=== PATIENT | female | born 1950 | race Caucasian/White ===

== ENCOUNTER 2016-08-27 15:21 | Emergency (ER) | payer MEDICARE, MEDICAID ==
[~2016-08-27] VITALS: Ht 162.6 cm; Wt 79.4 kg
[~2016-08-27 15:21] MED LIST: ACET-868 PO; ALBU2.5V38 NEB; ASPI-495 PO; ATOR20TA PO; CLON0.1T PO; ENOX40DI SQ; FURO-144 PO; LACT1CAP61 PO; METO50TA7 PO; ONDA4TAB11 PO; OXYB5TAB PO; PANT40TA2 PO; PREG50CA PO
[2016-08-27] MEDS ORDERED: IV SET PRIMARY 1 EA INFUS.SET MC ONE ×2 (15:45→16:39)
[2016-08-27] MEDS ORDERED: IV NS 0.9% 1,000 ML ONE ×2 (15:45→16:39)
[2016-08-27 15:54] LABS: BASOPHILS % (AUTO) 0.6 % (0.0-2.0); DIFF TOTAL % 100 %; EOSINOPHILS # (AUTO) 0.2 /CMM (0.0-0.7); EOSINOPHILS % (AUTO) 2.1 % (0.0-6.0); HEMATOCRIT 41 % (33-45); HEMOGLOBIN 12.5 g/dL (11.5-14.8); LYMPHOCYTES # (AUTO) 1.2 /CMM (0.8-4.8); LYMPHOCYTES % (AUTO) 15.6 % (20.0-44.0); MEAN CORPUSCULAR HEMOGLOBIN 28 PG (26.0-33.0); MEAN CORPUSCULAR HGB CONC 30 g/dl (31.0-36.0); MEAN CORPUSCULAR VOLUME 92 fL (82-100); MONOCYTES # (AUTO) 0.4 /CMM (0.1-1.30); MONOCYTES % (AUTO) 5.2 % (2.0-12.0); NEUTROPHILS # (AUTO) 5.7 /CMM (1.8-8.9); NEUTROPHILS % (AUTO) 76.5 % (43.0-81.0); PLATELET COUNT (AUTO) 188 /CMM (150-450); RED BLOOD CELL COUNT(AUTO) 4.48 MIL/uL (4.0-5.2); WHITE BLOOD COUNT (AUTO) 7.5 K/uL (4.3-11.0)
[2016-08-27] MEDS ORDERED: IV NS 0.9% 1,000 ML BAG IV ONE (16:00)
[2016-08-27 16:14] LABS: ALBUMIN 3.5 g/dL (3.4-5.0); BILIRUBIN,DIRECT 0.1 mg/dL (0.0-0.2); BILIRUBIN,TOTAL 0.5 mg/dL (0.2-1.0); CALCIUM, SERUM 9.4 mg/dL (8.5-10.1); CREATININE 1.9 mg/dL (0.6-1.3); INDIRECT BILIRUBIN 0.4 mg/dL (0.0-1.1); POTASSIUM 3.8 mmol/L (3.5-5.1); TOTAL PROTEIN, SERUM 8.2 g/dL (6.4-8.2)
[2016-08-27] MEDS ORDERED: INSULIN REGULAR, HUMAN 100 UNIT/ML 10 ML VIAL SQ ONE (16:30)
[2016-08-27] MEDS ORDERED: IV NS 0.9% 1,000 ML IV ONE (16:30)
[2016-08-27] MEDS ORDERED: INSULIN REGULAR, HUMAN 100 UNIT/ML 10 ML VIAL ONE (16:40)
[2016-08-27 18:27] LABS: KETONES,URINE Negative (NEGATIVE); LEUKOCYTE ESTERASE ,URINE Moderate (NEGATIVE)
[2016-08-27 18:44] LABS: ADD UA MICROSCOPIC YES
[2016-08-27 18:56] LABS: ADD URINE CULTURE YES; WBC,URINE 51-80 /HPF (0-3)
[2016-08-27] MEDS ORDERED: CEFTRIAXONE 1GM BAG (ER ONLY) 1 GM/50 ML PIGGYBACK IV ONE (19:00)
[2016-08-27] MEDS ORDERED: CEFTRIAXONE 1GM BAG (ER ONLY) 50 ML IV ONE (19:08)
[2016-08-27] MEDS ORDERED: IV SET PRIMARY PUMP SET 1 EA INFUS.SET MC ONE (19:09)
[2016-08-27 22:32] VITALS: BP 134/50
== END 2016-08-27 22:35 | disposition home or self-care (01) ==
LOC: ER 15:25
DX: E11.65 Type 2 diabetes mellitus with hyperglycemia (principal); N39.0 Urinary tract infection, site not specified; I10 Essential (primary) hypertension; I50.9 Heart failure, unspecified; K21.9 Gastro-esophageal reflux disease without esophagitis; N18.9 Chronic kidney disease, unspecified; F41.9 Anxiety disorder, unspecified; I73.9 Peripheral vascular disease, unspecified; M86.9 Osteomyelitis, unspecified; Z89.511 Acquired absence of right leg below knee; Z90.89 Acquired absence of other organs; Z88.6 Allergy status to analgesic agent; Z88.8 Allergy status to other drugs, medicaments and biological substances; Z79.82 Long term (current) use of aspirin
CPT/HCPCS: 36415; 80048; 80076; 81001; 82010; 82962; 83690; 85025; 87086; 96361; 96365; 96372; 99284; A4606; J0696; J1815; J7030 ×2; 81000-TC; 87186-TC; Z7610

== ENCOUNTER 2016-09-10 07:30 | Emergency (ER) | payer MEDICARE, MEDICAID ==
[~2016-09-10] VITALS: Ht 152.4 cm; Wt 72.1 kg
[2016-09-10 08:08] LABS: BASOPHILS % (AUTO) 0.3 % (0.0-2.0); DIFF TOTAL % 100 %; EOSINOPHILS # (AUTO) 0.2 /CMM (0.0-0.7); EOSINOPHILS % (AUTO) 3.5 % (0.0-6.0); HEMATOCRIT 36 % (33-45); HEMOGLOBIN 11.7 g/dL (11.5-14.8); LYMPHOCYTES % (AUTO) 14.2 % (20.0-44.0); MEAN CORPUSCULAR HEMOGLOBIN 30 PG (26.0-33.0); MEAN CORPUSCULAR HGB CONC 32 g/dl (31.0-36.0); MEAN CORPUSCULAR VOLUME 92 fL (82-100); MONOCYTES # (AUTO) 0.5 /CMM (0.1-1.30); MONOCYTES % (AUTO) 6.4 % (2.0-12.0); NEUTROPHILS # (AUTO) 5.4 /CMM (1.8-8.9); NEUTROPHILS % (AUTO) 75.6 % (43.0-81.0); PLATELET COUNT (AUTO) 216 /CMM (150-450); RED BLOOD CELL COUNT(AUTO) 3.94 MIL/uL (4.0-5.2); WHITE BLOOD COUNT (AUTO) 7.1 K/uL (4.3-11.0)
[2016-09-10 08:16] LABS: CREATININE 1.9 mg/dL (0.6-1.3); POTASSIUM 4.2 mmol/L (3.5-5.1)
[2016-09-10 08:21] LABS: ALBUMIN 3.2 g/dL (3.4-5.0); BILIRUBIN,DIRECT 0.2 mg/dL (0.0-0.2); BILIRUBIN,TOTAL 0.7 mg/dL (0.2-1.0); INDIRECT BILIRUBIN 0.5 mg/dL (0.0-1.1); TOTAL PROTEIN, SERUM 7.6 g/dL (6.4-8.2)
[2016-09-10 08:24] LABS: TROPONIN I 0.026 ng/mL (0.00-0.056)
[2016-09-10 08:33] LABS: INR 1.02 (0.87-1.13)
[2016-09-10 11:19] VITALS: BP 132/88
== END 2016-09-10 11:19 | disposition home or self-care (01) ==
LOC: ER 07:31
DX: S09.90XA Unspecified injury of head, initial encounter (principal); S13.9XXA Sprain of joints and ligaments of unspecified parts of neck, initial encounter; I11.0 Hypertensive heart disease with heart failure; I50.9 Heart failure, unspecified; K21.9 Gastro-esophageal reflux disease without esophagitis; I12.9 Hypertensive chronic kidney disease with stage 1 through stage 4 chronic kidney disease, or unspecified chronic kidney disease; N18.9 Chronic kidney disease, unspecified; D64.9 Anemia, unspecified; I73.9 Peripheral vascular disease, unspecified; E11.9 Type 2 diabetes mellitus without complications; Z89.511 Acquired absence of right leg below knee; Z79.82 Long term (current) use of aspirin; Z88.8 Allergy status to other drugs, medicaments and biological substances; Z90.89 Acquired absence of other organs; Z88.5 Allergy status to narcotic agent; W07.XXXA Fall from chair, initial encounter; Y93.89 Activity, other specified; Y92.89 Other specified places as the place of occurrence of the external cause; Y99.9 Unspecified external cause status
CPT/HCPCS: 36415; 70450; 71010; 72125; 80048; 80076; 84484; 85025; 85730; 93005; 99285; A4606; Z7610

== ENCOUNTER 2016-10-14 19:57 | Inpatient (IN) | payer MEDICARE, MEDICAID ==
[~2016-10-14] VITALS: Ht 152.4 cm; Wt 77.6 kg
--- NOTE | 2016-10-14 20:00 | NUR ---
to bed 3 bib paramedics c/o worsening cough and congestion x2 days, pt reports that she has been talking cough syrup for a couple of weeks by not getting better. pt aaox4, noted o2sat 78% on ra. place pt on cardiac monitoring, continuous pox, o2@2l/nc. skin warm nondiaphoretic. pending er md thomas.
[2016-10-14 20:24] LABS: LYMPHOCYTES # (AUTO) 1.1 /CMM (0.8-4.8); MEAN CORPUSCULAR HEMOGLOBIN 30 PG (26.0-33.0)
[2016-10-14 20:29] LABS: BASOPHILS # (AUTO) 0.1 /CMM (0.0-0.2); BASOPHILS % (AUTO) 0.5 % (0.0-2.0); EOSINOPHILS # (AUTO) 0.2 /CMM (0.0-0.7); EOSINOPHILS % (AUTO) 1.1 % (0.0-6.0); HEMATOCRIT 41 % (33-45); HEMOGLOBIN 13.3 g/dL (11.5-14.8); LYMPHOCYTES % (AUTO) 7.9 % (20.0-44.0); MEAN CORPUSCULAR HGB CONC 32 g/dl (31.0-36.0); MEAN CORPUSCULAR VOLUME 93 fL (82-100); MONOCYTES # (AUTO) 0.5 /CMM (0.1-1.30); MONOCYTES % (AUTO) 3.9 % (2.0-12.0); NEUTROPHILS % (AUTO) 86.6 % (43.0-81.0); PLATELET COUNT (AUTO) 247 /CMM (150-450); RDW COEFFICIENT OF VARIATION 17.3 (11.5-15.0); RED BLOOD CELL COUNT(AUTO) 4.41 MIL/uL (4.0-5.2); WHITE BLOOD COUNT (AUTO) 13.9 K/uL (4.3-11.0)
[2016-10-14 20:41] LABS: INR 0.99 (0.87-1.13); PROTHROMBIN TIME 10.3 SECS (9.5-12.7)
[2016-10-14 20:43] LABS: ALBUMIN 3.6 g/dL (3.4-5.0); BILIRUBIN,DIRECT 0.1 mg/dL (0.0-0.2); BILIRUBIN,TOTAL 0.4 mg/dL (0.2-1.0); CALCIUM, SERUM 10.1 mg/dL (8.5-10.1); CREATININE 1.8 mg/dL (0.6-1.3); POTASSIUM 4.1 mmol/L (3.5-5.1); TOTAL PROTEIN, SERUM 8.7 g/dL (6.4-8.2)
--- NOTE | 2016-10-14 20:47 | NUR ---
rt at bedside for hhn tx.
[2016-10-14] MEDS ORDERED: IPRATROPIUM NEB FS 0.5 MG/2.5 ML AMPUL.NEB ONE (20:48)
[2016-10-14] MEDS ORDERED: ALBUTEROL FS 2.5 MG/3 ML VIAL.NEB ONE (20:48)
[2016-10-14 20:58] LABS: TROPONIN I 0.035 ng/mL (0.00-0.056)
[2016-10-14] MEDS ORDERED: IPRATROPIUM NEB FS 0.5 MG/2.5 ML AMPUL.NEB NEB ONE (21:00)
[2016-10-14] MEDS ORDERED: ALBUTEROL FS 2.5 MG/3 ML VIAL.NEB NEB ONE (21:00)
--- NOTE | 2016-10-14 21:11 | NUR ---
CALLED [facility] AND CALL IS REFERRED TO EPIC
[2016-10-14 21:12] LABS: LACTIC ACID 1.9 mmol/L (0.4-2.0)
--- NOTE | 2016-10-14 21:12 | NUR ---
CALLED NURSING LOGGING RAFTER LABORER FOR TELE BED
--- NOTE | 2016-10-14 21:22 | NUR ---
PAGED EPIC COGNOS REPORT DEVELOPER MATT
--- NOTE | 2016-10-14 21:27 | NUR ---
PT ASSIGNED ROOM 104
[2016-10-14] MEDS ORDERED: IV NS 0.9% 1,000 ML IV ONE (21:30)
[2016-10-14] MEDS ORDERED: INSULIN REGULAR, HUMAN 100 UNIT/ML 10 ML VIAL SQ ONE (21:30)
--- NOTE | 2016-10-14 21:30 | NUR ---
DR DIAZ ON THE PHONE WITH DR GUTIERREZ
[2016-10-14] MEDS ORDERED: PIPERACILLIN /TAZOBACTAM 3.375 G VIAL IV ONE (21:44)
[2016-10-14] MEDS ORDERED: IV D5W 50 ML IV ONE (21:45)
[2016-10-14] MEDS ORDERED: IV SET PRIMARY 1 EA INFUS.SET MC ONE (21:45)
[2016-10-14] MEDS ORDERED: IV NS 0.9% 1,000 ML ONE ×2 (21:45→23:39)
[2016-10-14] MEDS ORDERED: INSULIN REGULAR, HUMAN 100 UNIT/ML 10 ML VIAL ONE ×2 (21:45→23:56)
[2016-10-14] MEDS ORDERED: ZOLPIDEM TARTRATE 5 MG TABLET PO PRN (22:00)
[2016-10-14] MEDS ORDERED: PIPERACILLIN /TAZOBACTAM 3.375 G in IV D5W 50 ML IV ONE (22:00)
--- NOTE | 2016-10-14 22:04 | NUR ---
WITNESSED SQ ADMINISTRATION OF REGULAR INSULIN 10 UNITS BY PRIMARY NURSE.
[2016-10-14 22:06] LABS: APPEARANCE,URINE SL CLOUDY (CLEAR); BILIRUBIN,URINE NEGATIVE (NEGATIVE); BLOOD, URINE 1+ Ery/uL (NEGATIVE); COLOR,URINE YELLOW (YELLOW); KETONES,URINE NEGATIVE (NEGATIVE); LEUKOCYTE ESTERASE ,URINE TRACE (NEGATIVE); NITRITE, URINE NEGATIVE (NEGATIVE); PH,URINE 6.5 (5.0-8.0); PROTEIN,URINE 2+ mg/dl (NEGATIVE); UGLUCOSE 3+ mg/dL (NEGATIVE); UROBILINOGEN,URINE 0.2 EU/dL (0.2)
[2016-10-14 22:17] LABS: ADD URINE CULTURE NO; BACTERIA,URINE 1+ /HPF (None Seen)
--- NOTE | 2016-10-14 22:37 | NUR ---
REPORT CALLED TO RETAIL ATTENDANT. PENDING HOSPITAL ADMISSION.
--- NOTE | 2016-10-14 22:50 | NUR ---
WAREHOUSE PACKAGING SUPERVISOR INITIAL NOTE RECEIVED PT VIA GURNEY FROM ER. A/O X3 AND ABLE TO MAKE NEEDS KNOWN. NO ACUTE DISTRESS NOTED. ON . SKIN ASSESSMENT DONE. HEART AND LUNG SOUNDS AUSCULTATED. IV SITE L FA #18G FLUSHING WELL , PATENT AND INTACT. VITAL SIGNS ALSO DONE. ALL SAFETY MEASURES IN PLACE. CALL LIGHT WITHIN EASY REACH AT ALL TIMES. WILL CONTINUE TO MONITOR.
[2016-10-14] MEDS ORDERED: IV NS 0.9% 1,000 ML IV PRN (23:28)
[2016-10-14] MEDS ORDERED: ENOXAPARIN SODIUM 40 MG/0.4 ML DISP.SYRIN SQ SCH (23:30)
[2016-10-14] MEDS ORDERED: MAG HYDROX/AL HYDROX/SIMETH 30 ML UDC PO PRN (23:30)
[2016-10-14] MEDS ORDERED: MAGNESIUM HYDROXIDE 30 ML UDC PO PRN (23:30)
[2016-10-14] MEDS ORDERED: HYDROCODONE/APAP 5/325MG 1 EACH TABLET PO PRN (23:30)
[2016-10-14] MEDS ORDERED: HYDROMORPHONE INJ 2 MG/ML DISP.SYRIN IV PRN (23:30)
[2016-10-14] MEDS ORDERED: Z GUARD REMEDY 2 OZ OINT TP PRN (23:30)
[2016-10-14] MEDS ORDERED: DEXTROSE 50%-WATER 50 ML DISP.SYRIN IV PRN (23:30)
[2016-10-14] MEDS ORDERED: IV SET PRIMARY PUMP SET 1 EA INFUS.SET MC ONE (23:38)
[2016-10-14 23:55] LABS: ABG BASE EXCESS 6.1 mmol/L; ABG PCO2 59.5 mmHg (35.0-45.0); ABG PH 7.364 (7.350-7.450); ABG PO2 49.6 mmHg (75.0-100.0); ABG TOTAL HEMOGLOBIN 13.1 G/dL (12.0-16.0); AaDO2 108.9 mmHg; COHb 1.3 % (0.5-1.5); MetHb 0.9 % (0.0-1.5); O2Hb 79.2 % (94.0-97.0); SITE, ABG Right Radial; VENT MODE, BG Nasal Cannula
[2016-10-15] VITALS: BP 136/72
[2016-10-15] MEDS ORDERED: ALBUTEROL FS 2.5 MG/3 ML VIAL.NEB NEB SCH
[2016-10-15] MEDS ORDERED: BENZONATATE 100 MG CAPSULE PO PRN
[2016-10-15] MEDS ORDERED: GUAIFENESIN/CODEINE 10 ML UDC PO PRN
[2016-10-15] MEDS ORDERED: CLONIDINE HCL 0.1 MG TABLET PO PRN
--- NOTE | 2016-10-15 | NUR ---
RN NOTES: PT BS CHECK 505 MG/DL. ALSO PATIENT O2 SATS AT 85-89% ON O2 OF 2LPM. PT SAYS SHE HAS HISTORY OF COPD. DR GUTIERREZ MADE AWARE, ADMISSION ORDERS IN. PER MD WITH ORDER FOR NPH INSULIN 15 UNITS SQ NOW ONE TIME DOSE IN ADDITION TO SLIDING SCALE. NOTED ORDER IN EMR BUT DOES NOT SHOW UP IN EMAR. DUE TO THIS UNABLE TO SCAN NPH. ORDERS NOTED AND CARRIED OUT. CO SIGNED BY ANGELICA PERALTA PT'S PRIMARY NURSE. PLEASE SEE ORDER IN CHART WELL. ALSO WITH ORDER FOR STAT ABG ON LOW FLOW O2. NOTED AND CARRIED OUT. NON ADMINISTERED ZOSYN PT WAS GIVEN WITH ZOSYN 2HRS AGO AT ER. PT WITH COMPLAINTS OF NAUSEA BUT NO EMESIS NOTED. PRN MEDS GIVEN. 0039 RELAYED ABG RESULT TO MD,WITH ORDERS OF BREATHING TX AND MONITOR PT FOR DISTRESS. CONTINUOUSLY MONITORED PT. ALL ORDERS NOTED AND CARRIED OUT. PRIMARY RNKATHRYN AWARE AND INVOLVED WITH CARE.
--- NOTE | 2016-10-15 00:05 | NUR ---
ABG DONE. NOTIFIED RN WITH THE RESULT.
[2016-10-15] MEDS: INSULIN REGULAR, HUMAN 100 UNIT/ML 3 ML VIAL SQ PRN ×6 (00:10→21:27)
[2016-10-15] MEDS ORDERED: INSULIN NPH, HUMAN ISOPHANE 100 UNIT/ML CARTRIDGE SQ PRN (00:30)
[2016-10-15] MEDS ORDERED: INSULIN NPH, HUMAN ISOPHANE 100 UNIT/ML VIAL SQ SCH (00:30)
[2016-10-15] MEDS ORDERED: INSULIN NPH, HUMAN ISOPHANE 100 UNIT/ML CARTRIDGE SQ ONE ×5 (00:30→05:30)
[2016-10-15] MEDS: ALBUTEROL FS 2.5 MG/3 ML VIAL.NEB NEB SCH ×7 (00:36→23:03)
[2016-10-15] MEDS: ONDANSETRON HCL/PF 4 MG/2 ML VIAL IVP PRN (00:39)
[2016-10-15] MEDS ORDERED: ALBUTEROL FS 2.5 MG/3 ML VIAL.NEB ONE (02:46)
[2016-10-15] MEDS: BLOOD SUGAR DIAGNOSTIC 1 EACH STRIP IN SCH ×6 (03:07→21:17)
[2016-10-15 04:00] VITALS: BP 120/57
[2016-10-15] MEDS ORDERED: PIPERACILLIN /TAZOBACTAM 2.25 G VIAL IV ONE (04:59)
[2016-10-15] MEDS ORDERED: SECONDARY IV SET 1 EA INFUS.SET MC ONE ×2 (04:59→12:28)
[2016-10-15] MEDS ORDERED: IV D5W 50 ML IV ONE (04:59)
--- NOTE | 2016-10-15 05:00 | NUR ---
RN NOTES: RECHECK BLOOD SUGAR, AT 418 MG/DL. INFORMED MD DR GUTIERREZ WITH ORDER FOR ANOTHER 10 UNITS NPH AND COVER REGULAR INSULIN PER PROTOCOL. NOTED AND CARRIED OUT. PRIMARY RN, KATHRYN AWARE AND INVOLVED. TO CONTINUE TO MONITOR PT.
[2016-10-15] MEDS: PIPERACILLIN /TAZOBACTAM 4.5 G in IV D5W 50 ML IV SCH ×3 (05:12)
[2016-10-15 06:44] LABS: HEMATOCRIT 37 % (33-45); HEMOGLOBIN 11.9 g/dL (11.5-14.8); LYMPHOCYTES # (AUTO) 0.8 /CMM (0.8-4.8); LYMPHOCYTES % (AUTO) 5.4 % (20.0-44.0); MEAN CORPUSCULAR HEMOGLOBIN 30 PG (26.0-33.0); MEAN CORPUSCULAR HGB CONC 32 g/dl (31.0-36.0); MEAN CORPUSCULAR VOLUME 94 fL (82-100); MONOCYTES # (AUTO) 0.6 /CMM (0.1-1.30); MONOCYTES % (AUTO) 3.9 % (2.0-12.0); NEUTROPHILS # (AUTO) 14.2 /CMM (1.8-8.9); NEUTROPHILS % (AUTO) 90.7 % (43.0-81.0); PLATELET COUNT (AUTO) 225 /CMM (150-450); RDW COEFFICIENT OF VARIATION 18.4 (11.5-15.0); RED BLOOD CELL COUNT(AUTO) 3.97 MIL/uL (4.0-5.2); WHITE BLOOD COUNT (AUTO) 15.6 K/uL (4.3-11.0)
--- NOTE | 2016-10-15 07:15 | NUR ---
INSURANCE LOSS ASSESSOR INITIAL NOTES RECEIVED REPORT AND PT FROM PM NURSE, PT RESTING IN BED, NO ACUTE CHANGES, NO SOB, PT ASLEEP SITTING UPRIGHT, A&O X4, ON TELE MON SR 83 WITH PVCS, ON 2L NC SAT ABOVE 97%, LT FA 18 G RUNNING NS @ 75 ML/HR, INTACT NO INFILTRATION, ALL NEEDS MET, ALL SAFETY MEASURES INITIATED, SIDE RAILS X2, BED LOW AND LOCKED, CALL LIGHT WITHIN REACH, WILL CONTINUE TO MONITOR.
[2016-10-15 07:34] LABS: CALCIUM, SERUM 9.1 mg/dL (8.5-10.1); CREATININE 1.8 mg/dL (0.6-1.3); MAGNESIUM 1.8 mg/dL (1.8-2.4); POTASSIUM 4.4 mmol/L (3.5-5.1)
[2016-10-15 08:00] VITALS: BP 126/58
[2016-10-15] MEDS: PANTOPRAZOLE 40 MG TABLET.DR PO SCH (08:54)
[2016-10-15] MEDS: OXYBUTYNIN CHLORIDE ER 5 MG TAB PO SCH (08:54)
[2016-10-15] MEDS: ASPIRIN EC 81 MG TABLET.DR PO SCH (08:54)
[2016-10-15] MEDS: PREGABALIN 25 MG CAPSULE PO SCH ×3 (08:54→16:59)
[2016-10-15] MEDS: METOPROLOL SUCCINATE 50 MG TAB.SR.24H PO SCH (08:55)
[2016-10-15] MEDS ORDERED: PIPERACILLIN /TAZOBACTAM 3.375 G in IV D5W 50 ML IV SCH (11:00)
[2016-10-15 12:00] VITALS: BP 107/50
[2016-10-15] MEDS ORDERED: BUMETANIDE INJ 8 MG in IV NS 0.9% 48 ML IV ONE (12:00)
[2016-10-15 12:14] LABS: ABG BASE EXCESS 7.9 mmol/L; ABG OXYGEN SATURATION 90.2 % (92.0-98.5); ABG PCO2 58.6 mmHg (35.0-45.0); ABG PH 7.388 (7.350-7.450); ABG PO2 61.9 mmHg (75.0-100.0); ABG TOTAL HEMOGLOBIN 11.4 G/dL (12.0-16.0); AaDO2 39.5 mmHg; COHb 1.2 % (0.5-1.5); MetHb 1.1 % (0.0-1.5); O2Hb 88.1 % (94.0-97.0); SITE, ABG Left Brachial; VENT MODE, BG 2L NC
[2016-10-15] MEDS: PIPERACILLIN /TAZOBACTAM 3.375 G in IV D5W 50 ML IV SCH ×3 (12:34→22:32)
[2016-10-15 16:00] VITALS: BP 112/45
--- NOTE | 2016-10-15 18:46 | NUR ---
QUALITY PROJECT MANAGER ENDING NOTES PT STABLE, NO ACUTE CHANGES NOTED, ALL DUE MEDS GIVEN, ALL NEEDS MET, BED BATH PROVIDED, DVT PUMPS PLACED, WILL ENDORSE TO PM NURSE
--- NOTE | 2016-10-15 19:30 | NUR ---
EFFICIENCY ENGINEER INITIAL NOTE RECEIVED PT RESTING IN BED AT LOWEST POSITION AND LOCKED. A/O X3 AND ABLE TO MAKE NEEDS KNOWN. ON 2L OF O2 VIA NC AND SATING WELL. NO C/O PAIN OR DISCOMFORT AT THIS TIME. IV LFA PATENT, CLEAN AND FLUSHING WELL. ALL SAFETY MEASURES IN PLACE. CALL LIGHT WITHIN EASY REACH AT ALL TIMES. WILL CONTINUE TO MONITOR.
[2016-10-15 20:00] VITALS: BP 90/52
[2016-10-15] MEDS: ATORVASTATIN 10 MG TABLET PO SCH (21:17)
[2016-10-15] MEDS: ENOXAPARIN SODIUM 30 MG/0.3 ML DISP.SYRIN SQ SCH (21:18)
[2016-10-16] VITALS (7 sets, daily range): BP systolic 89–141; BP diastolic 39–75
[2016-10-16] MEDS: BLOOD SUGAR DIAGNOSTIC 1 EACH STRIP IN SCH ×6 (00:43→21:18)
[2016-10-16] MEDS: ALBUTEROL FS 2.5 MG/3 ML VIAL.NEB NEB SCH ×6 (03:29→23:17)
[2016-10-16] MEDS: ACETAMINOPHEN 325 MG TABLET PO PRN ×2 (03:48→21:20)
[2016-10-16] MEDS: PIPERACILLIN /TAZOBACTAM 3.375 G in IV D5W 50 ML IV SCH ×3 (04:37→18:05)
--- NOTE | 2016-10-16 06:32 | NUR ---
SENIOR COST ESTIMATOR CLOSING NOTE PT REMAINED STABLE DURING SHIFT. BLOOD SUGARS WERE UNDER CONTROL AND MONITORED CLOSELY. SATING WELL. IV SITE INTACT AND PATENT. NO C/O PAIN. ALL DUE MEDS GIVEN ORDERED AND WELL TOLERATED. CALL LIGHT WITHIN REACH AT ALL TIMES. WILL ENDORSE TO NEXT SHIFT FOR BETSEY.
[2016-10-16 06:52] LABS: BASOPHILS % (AUTO) 0.2 % (0.0-2.0); EOSINOPHILS % (AUTO) 0.2 % (0.0-6.0); HEMATOCRIT 33 % (33-45); LYMPHOCYTES # (AUTO) 1.1 /CMM (0.8-4.8); LYMPHOCYTES % (AUTO) 7.6 % (20.0-44.0); MEAN CORPUSCULAR HEMOGLOBIN 31 PG (26.0-33.0); MEAN CORPUSCULAR HGB CONC 33 g/dl (31.0-36.0); MEAN CORPUSCULAR VOLUME 93 fL (82-100); MONOCYTES # (AUTO) 0.8 /CMM (0.1-1.30); MONOCYTES % (AUTO) 5.6 % (2.0-12.0); NEUTROPHILS # (AUTO) 12.7 /CMM (1.8-8.9); NEUTROPHILS % (AUTO) 86.4 % (43.0-81.0); PLATELET COUNT (AUTO) 198 /CMM (150-450); RED BLOOD CELL COUNT(AUTO) 3.59 MIL/uL (4.0-5.2); WHITE BLOOD COUNT (AUTO) 14.7 K/uL (4.3-11.0)
[2016-10-16 07:11] LABS: ALBUMIN 2.9 g/dL (3.4-5.0); BILIRUBIN,TOTAL 0.4 mg/dL (0.2-1.0); CALCIUM, SERUM 8.8 mg/dL (8.5-10.1); MAGNESIUM 1.7 mg/dL (1.8-2.4); PHOSPHORUS 4.2 mg/dL (2.5-4.9); POTASSIUM 3.5 mmol/L (3.5-5.1); TOTAL PROTEIN, SERUM 7.1 g/dL (6.4-8.2)
--- NOTE | 2016-10-16 07:31 | NUR ---
PRODUCTION SOLDERER INITIAL NOTES RECEIVED REPORT AND PT FROM PM NURSE, A&O X3 ARMENIAN SPEAKING, ON 2L NC SAT ABOVE 94%, ON TELE MON SR 96, LT FA 18G IV INTACT AND PATENT NO S.S OF INFILTRATION NOTED, ALL NEEDS MET, ALL SAFETY MEASURES INITIATED, SIDE RAILS X2, BED LOW AND LOCKED, CALL LIGHT WITHIN REACH, WILL CONTINUE TO MONITOR.
[2016-10-16] MEDS: METOPROLOL SUCCINATE 50 MG TAB.SR.24H PO SCH (08:39)
[2016-10-16] MEDS: OXYBUTYNIN CHLORIDE ER 5 MG TAB PO SCH (08:40)
[2016-10-16] MEDS: ASPIRIN EC 81 MG TABLET.DR PO SCH (08:41)
[2016-10-16] MEDS: PANTOPRAZOLE 40 MG TABLET.DR PO SCH (08:41)
[2016-10-16] MEDS: PREGABALIN 25 MG CAPSULE PO SCH ×3 (08:41→18:05)
[2016-10-16] MEDS: INSULIN REGULAR, HUMAN 100 UNIT/ML 3 ML VIAL SQ PRN ×3 (08:46→21:25)
[2016-10-16] MEDS ORDERED: BUMETANIDE INJ 8 MG in IV NS 0.9% 48 ML IV ONE (11:00)
[2016-10-16] MEDS: POTASSIUM CHLORIDE 20 MEQ TAB.PRT.SR PO SCH ×3 (11:28→14:16)
--- NOTE | 2016-10-16 11:53 | NUR ---
BREAKER UP NOTES PT ON MONITOR TRIGEMINY WITH HR 98, STAT EKG ORDERED, DR CAVANAUGH AWARE AND AT BEDSIDE.
[2016-10-16] MEDS ORDERED: Magnesium 1GM/D5W 100ML PREMIX 100 ML IV SCH (12:38)
[2016-10-16] MEDS ORDERED: SECONDARY IV SET 1 EA INFUS.SET MC ONE (12:56)
[2016-10-16] MEDS ORDERED: VANCOMYCIN 1 GM in IV D5W 250 ML IV SCH (15:00)
[2016-10-16] MEDS: ONDANSETRON HCL/PF 4 MG/2 ML VIAL IVP PRN (16:04)
--- NOTE | 2016-10-16 18:13 | NUR ---
MINIBUS DRIVER NOTES PT BG IS 152 MG.DL BUT PT IS NOT EATING ANY DINNER AND ALSO REFUSES INSULIN AT THIS TIME
--- NOTE | 2016-10-16 18:29 | NUR ---
CONSTRUCTION ANALYST ENDING NOTES PT STABLE WITH NO ACUTE DISTRESS, ALL DUE MEDS GIVEN, ALL NEEDS MET, WILL ENDORSE TO PM NURSE.
--- NOTE | 2016-10-16 19:00 | NUR ---
CORRESPONDENCE RENEW CLERK- INITIAL NOTE RECEIVED PT A/O X3, LYING COMFORTABLY IN BED. ON 3L NC, RESPIRATIONS EVEN AND UNLABORED, NO SOB OR DISTRESS PRESENT. PT DENIES ANY PAIN OR DISCOMFORT. TELE MONITOR REVEALS SINUS RHYTHM, HR= 99. LFA 18G PRESENT, CURRENTLY ON BUMEX GTT AT 10 MLS/HR. IV SITE FLUSHED, PATENT, INTACT AND FREE OF REDNESS, SWELLING AND INFLAMMATION. PT INCONTINENT OF URINE & STOOL, DIAPER IS CLEAN AND DRY. SAFETY MEASURES TAKEN: BED LOCKED AND IN LOW POSITION, SIDE RAILS UP X2, BED ALARM ON AND CALL LIGHT WITHIN REACH, WILL CONTINUE TO MONITOR.
--- NOTE | 2016-10-16 20:00 | NUR ---
PT NOTED WITH TEMP OF 100.9 ORAL. RE-CHECKED BY MYSELF AND TEMP IS 101. COOLING MEASURES PLACE. TYLENOL 650 MG PO TO BE ADMINISTERED 2020- INFORMED EPIC ON-CALL, Arturo GUTIERREZ DNP OF PT UPDATE. NEW ORDERS PLACED FOR STAT BLOOD CULTURES X2 AND LACTIC ACID. ALL ORDERS PLACED AND CARRIED OUT. PT UPDATED AND AGREES WITH PLAN OF CARE. WILL CONTINUE TO MONITOR.
[2016-10-16] MEDS: ATORVASTATIN 10 MG TABLET PO SCH (21:20)
[2016-10-16] MEDS: ENOXAPARIN SODIUM 30 MG/0.3 ML DISP.SYRIN SQ SCH (21:25)
--- NOTE | 2016-10-16 22:00 | NUR ---
WOUND CONSULT PLACED FOR PT'S LEFT HEEL WOUND WHICH WAS PRESENT DURING ADMISSION. WILL ENDORSE TO DAY SHIFT NURSE.
[2016-10-17] VITALS (7 sets, daily range): BP systolic 94–130; BP diastolic 38–97
[2016-10-17] MEDS ORDERED: IV NS 0.9% 250 ML IV ONE (00:03)
[2016-10-17] MEDS: PIPERACILLIN /TAZOBACTAM 3.375 G in IV D5W 50 ML IV SCH ×5 (00:09→23:45)
[2016-10-17] MEDS: BLOOD SUGAR DIAGNOSTIC 1 EACH STRIP IN SCH ×6 (00:11→21:59)
[2016-10-17] MEDS: INSULIN REGULAR, HUMAN 100 UNIT/ML 3 ML VIAL SQ PRN ×5 (00:18→22:00)
[2016-10-17] MEDS: ALBUTEROL FS 2.5 MG/3 ML VIAL.NEB NEB SCH ×6 (03:19→23:28)
[2016-10-17] MEDS: PANTOPRAZOLE 40 MG TABLET.DR PO SCH (06:47)
[2016-10-17 06:50] LABS: BASOPHILS % (AUTO) 0.3 % (0.0-2.0); EOSINOPHILS # (AUTO) 0.1 /CMM (0.0-0.7); EOSINOPHILS % (AUTO) 0.8 % (0.0-6.0); HEMATOCRIT 36 % (33-45); HEMOGLOBIN 11.6 g/dL (11.5-14.8); LYMPHOCYTES # (AUTO) 1.2 /CMM (0.8-4.8); LYMPHOCYTES % (AUTO) 9.1 % (20.0-44.0); MEAN CORPUSCULAR HEMOGLOBIN 31 PG (26.0-33.0); MEAN CORPUSCULAR HGB CONC 32 g/dl (31.0-36.0); MEAN CORPUSCULAR VOLUME 94 fL (82-100); MONOCYTES # (AUTO) 0.8 /CMM (0.1-1.30); NEUTROPHILS # (AUTO) 10.8 /CMM (1.8-8.9); NEUTROPHILS % (AUTO) 83.8 % (43.0-81.0); PLATELET COUNT (AUTO) 187 /CMM (150-450); RDW COEFFICIENT OF VARIATION 18.4 (11.5-15.0); RED BLOOD CELL COUNT(AUTO) 3.81 MIL/uL (4.0-5.2); WHITE BLOOD COUNT (AUTO) 12.9 K/uL (4.3-11.0)
--- NOTE | 2016-10-17 07:00 | NUR ---
GEAR SHAPER SET UP OPERATOR- END OF SHIFT NOTE PT ENDORSED TO DAY SHIFT NURSE IN STABLE CONDITION, IN NO ACUTE DISTRESS. NO OVERNIGHT EVENTS.
[2016-10-17 07:18] LABS: ALBUMIN 2.8 g/dL (3.4-5.0); BILIRUBIN,TOTAL 0.7 mg/dL (0.2-1.0); CALCIUM, SERUM 8.8 mg/dL (8.5-10.1); CREATININE 2.4 mg/dL (0.6-1.3); MAGNESIUM 2.2 mg/dL (1.8-2.4); PHOSPHORUS 4.7 mg/dL (2.5-4.9); POTASSIUM 3.6 mmol/L (3.5-5.1); TOTAL PROTEIN, SERUM 7.2 g/dL (6.4-8.2)
--- NOTE | 2016-10-17 08:04 | NUR ---
WOUND CARE CONSULT: PT PRESENTS WITH LEFT HEEL ESCHAR, PRESENT ON ADMISSION. RT BK STUMP NOTED. RECOMMEND DPM CONSULT. RECOMMENDATIONS MADE FOR SKIN PROTECTION. LAYNE SCORE IS 16. PT ON LION COMFORT GEL MATTRESS. SOME SACRAL/BUTTOCK SCARRING NOTED. ALL SKIN PROTECTION RECOMMENDATIONS DISCUSSED WITH NURSING STAFF. MD IN AGREEMENT WITH PLAN OF CARE. Addendum: 10/17/16 at 0806 by VENECIA MARIE WNDNU Amended: Links added.
[2016-10-17] MEDS: ASPIRIN EC 81 MG TABLET.DR PO SCH (08:11)
[2016-10-17] MEDS: METOPROLOL SUCCINATE 50 MG TAB.SR.24H PO SCH (08:12)
[2016-10-17] MEDS: OXYBUTYNIN CHLORIDE ER 5 MG TAB PO SCH (08:12)
[2016-10-17] MEDS: PREGABALIN 25 MG CAPSULE PO SCH ×3 (08:12→17:53)
--- NOTE | 2016-10-17 09:58 | NUR ---
RN INITIAL NOTE PT RECEIVED IN BED, NO S/S OF PAIN OR DISCOMFORT. RESTING COMFORTABLY. PT IS ALERT AND ORIENTED. ABLE TO MAKE NEEDS KNOWN. RESPIRATIONS ARE EVEN AND UNLABORED. SATING AT 95% ON 3L N/C. LFA 18G SL. FLUSHED AND PATENT. C/D/I. SKIN WARM AND DRY TO TOUCH SAFETY MEASURES IN PLACE. BED IN LOCKED LOW POSITION. TWO SIDE RAILS UP. CALL LIGHT WITHIN REACH. WILL CONTINUE TO MONITOR.
[2016-10-17] MEDS ORDERED: BUMETANIDE INJ 16 MG in IV NS 0.9% 16 ML IV ONE (13:30)
[2016-10-17] MEDS: ONDANSETRON HCL/PF 4 MG/2 ML VIAL IVP PRN (17:53)
--- NOTE | 2016-10-17 19:18 | NUR ---
RN CLOSING NOTE PT RESTING IN BED COMFORTABLY, ALL MD ORDERS CARRIED OUT. PT KEPT CLEAN AND DRY. WILL GIVE REPORT TO PM RN FOR BETSEY.
[2016-10-17] MEDS: ENOXAPARIN SODIUM 30 MG/0.3 ML DISP.SYRIN SQ SCH (21:46)
[2016-10-17] MEDS: ATORVASTATIN 10 MG TABLET PO SCH (22:18)
[2016-10-17] MEDS ORDERED: SECONDARY IV SET 1 EA INFUS.SET MC ONE (23:31)
[2016-10-18] MEDS: BLOOD SUGAR DIAGNOSTIC 1 EACH STRIP IN SCH ×3 (01:19→13:00)
[2016-10-18 04:00] VITALS: BP 130/70
[2016-10-18] MEDS: ALBUTEROL FS 2.5 MG/3 ML VIAL.NEB NEB SCH ×4 (04:08→15:48)
[2016-10-18] MEDS: PIPERACILLIN /TAZOBACTAM 3.375 G in IV D5W 50 ML IV SCH ×2 (05:22→10:22)
[2016-10-18] MEDS: INSULIN REGULAR, HUMAN 100 UNIT/ML 3 ML VIAL SQ PRN ×2 (06:19→14:36)
[2016-10-18 07:05] LABS: ALBUMIN 2.7 g/dL (3.4-5.0); BILIRUBIN,TOTAL 0.6 mg/dL (0.2-1.0); CALCIUM, SERUM 8.3 mg/dL (8.5-10.1); CREATININE 2.6 mg/dL (0.6-1.3); MAGNESIUM 2.2 mg/dL (1.8-2.4); PHOSPHORUS 4.4 mg/dL (2.5-4.9); POTASSIUM 3.3 mmol/L (3.5-5.1)
[2016-10-18 08:00] VITALS: BP_SYST 133; BP_SYST 135; BP_DIAS 50
[2016-10-18] MEDS: PANTOPRAZOLE 40 MG TABLET.DR PO SCH (10:30)
[2016-10-18] MEDS: ASPIRIN EC 81 MG TABLET.DR PO SCH (10:31)
[2016-10-18] MEDS: PREGABALIN 25 MG CAPSULE PO SCH ×2 (10:31→14:18)
[2016-10-18] MEDS: OXYBUTYNIN CHLORIDE ER 5 MG TAB PO SCH (10:31)
[2016-10-18] MEDS: METOPROLOL SUCCINATE 50 MG TAB.SR.24H PO SCH (10:32)
[2016-10-18] MEDS ORDERED: NITROGLYCERIN 30 GM TUBE TP SCH (12:00)
[2016-10-18] MEDS ORDERED: BUMETANIDE INJ 16 MG in IV NS 0.9% 16 ML IV ONE (12:00)
[2016-10-18] MEDS ORDERED: POTASSIUM CHLORIDE 20 MEQ TAB.PRT.SR PO ONE (13:30)
[2016-10-18] MEDS: ONDANSETRON HCL/PF 4 MG/2 ML VIAL IVP PRN (14:31)
--- NOTE | 2016-10-18 16:43 | NUR ---
REPORT CALLED TO [facility] AND GIVEN TO NURSE ANDERS FOR PATIENT DIACHARGE AND ADMISSION TO ROOM 53-C.
--- NOTE | 2016-10-18 16:44 | NUR ---
CALLED PATIENT DAUGHTER LAUREANO AND INFORMED OF PATIENT'S DISCHARGE TO [facility] TO ROOM 53-C. ALL QUESTIONS AND CONCERNS ADDRESSED.
[2016-10-18 17:00] VITALS: BP 159/62
== END 2016-10-18 17:41 | DRG 291 ==
LOC: ER 19:58 → TELE1 21:46 → MEDSG1 10-17 12:36
PROVIDERS: ADMIT Internal Medicine; ATTEND Internal Medicine
DX: I13.0 Hypertensive heart and chronic kidney disease with heart failure and stage 1 through stage 4 chronic kidney disease, or unspecified chronic kidney disease (principal); J96.01 Acute respiratory failure with hypoxia; I50.23 Acute on chronic systolic (congestive) heart failure; J15.9 Unspecified bacterial pneumonia; E44.0 Moderate protein-calorie malnutrition; J98.11 Atelectasis; N39.0 Urinary tract infection, site not specified; I73.9 Peripheral vascular disease, unspecified; N18.9 Chronic kidney disease, unspecified; E11.51 Type 2 diabetes mellitus with diabetic peripheral angiopathy without gangrene; E11.22 Type 2 diabetes mellitus with diabetic chronic kidney disease; E11.69 Type 2 diabetes mellitus with other specified complication; E78.5 Hyperlipidemia, unspecified; E11.65 Type 2 diabetes mellitus with hyperglycemia; Z79.4 Long term (current) use of insulin; I25.5 Ischemic cardiomyopathy; Z89.511 Acquired absence of right leg below knee; G62.9 Polyneuropathy, unspecified; J45.909 Unspecified asthma, uncomplicated; E66.9 Obesity, unspecified; I25.10 Atherosclerotic heart disease of native coronary artery without angina pectoris; K21.9 Gastro-esophageal reflux disease without esophagitis; M19.90 Unspecified osteoarthritis, unspecified site; M81.0 Age-related osteoporosis without current pathological fracture; Z68.33 Body mass index [BMI] 33.0-33.9, adult
CPT/HCPCS: 36415; 36600; 71010-TC; 80048-TC; 80053-TC; 80061-TC; 80076-TC; 81000-TC; 82803-TC; 82962-TC; 83605-TC; 83735-TC; 83880; 84100-TC; 84484-TC; 85025-TC; 85730-TC; 87040-TC; 87081-TC; 93307-TC; 94799-TC; A4216; A4606; J1650; J1815; J2405; J2543; J3370; J3475; J3490; J7030; J7050; J7060; Z7610

== ENCOUNTER 2016-10-22 19:29 | Inpatient (IN) | payer MEDICARE, MEDICAID ==
[~2016-10-22] VITALS: Ht 152.4 cm; Wt 77.1 kg
--- NOTE | 2016-10-22 19:40 | NUR ---
NANCY BALL FROM [facility] FOR AB LABS. BUN 71 PT AOX3 RR EVEN AND UNLABORED. NO SOB NOTED. NAD NOTED. NO NVD THIS TIME. PT NOT DIAPHORETIC. PT GOWNED AND PLACED ON MONITOR. PT NOTED WITH RIGHT BKA. PER SNF PLACED IV ON LEFT FA 18. NO S/S INFECTION OF INFILTRATION NOTED. DR. LEY AT BEDSIDE FOR EVAL.
[2016-10-22] MEDS ORDERED: IV NS 0.9% 500 ML BAG IV ONE (20:00)
--- NOTE | 2016-10-22 20:07 | NUR ---
LAB AT BEDSIDE FOR BLOOD DRAW.
[2016-10-22 20:13] LABS: BASOPHILS # (AUTO) 0.3 /CMM (0.0-0.2); BASOPHILS % (AUTO) 2.2 % (0.0-2.0); EOSINOPHILS # (AUTO) 0.3 /CMM (0.0-0.7); EOSINOPHILS % (AUTO) 1.9 % (0.0-6.0); HEMATOCRIT 36 % (33-45); HEMOGLOBIN 11.9 g/dL (11.5-14.8); LYMPHOCYTES # (AUTO) 0.7 /CMM (0.8-4.8); LYMPHOCYTES % (AUTO) 5.1 % (20.0-44.0); MEAN CORPUSCULAR HEMOGLOBIN 31 PG (26.0-33.0); MEAN CORPUSCULAR HGB CONC 33 g/dl (31.0-36.0); MEAN CORPUSCULAR VOLUME 92 fL (82-100); MONOCYTES # (AUTO) 0.5 /CMM (0.1-1.30); MONOCYTES % (AUTO) 3.2 % (2.0-12.0); NEUTROPHILS # (AUTO) 12.8 /CMM (1.8-8.9); NEUTROPHILS % (AUTO) 87.6 % (43.0-81.0); PLATELET COUNT (AUTO) 196 /CMM (150-450); RDW COEFFICIENT OF VARIATION 18.2 (11.5-15.0); RED BLOOD CELL COUNT(AUTO) 3.88 MIL/uL (4.0-5.2); WHITE BLOOD COUNT (AUTO) 14.6 K/uL (4.3-11.0)
[2016-10-22] MEDS ORDERED: MAG355OR18 PO (20:19)
[2016-10-22] MEDS ORDERED: NA P133E RC (20:19)
[2016-10-22] MEDS ORDERED: BISA10SU8 RC (20:19)
[2016-10-22] MEDS ORDERED: DOCU-25 PO (20:19)
[2016-10-22] MEDS ORDERED: BENZ200C45 PO (20:19)
[2016-10-22] MEDS ORDERED: MAGN400O6 PO (20:19)
[2016-10-22 20:26] LABS: INR 3.41 (0.87-1.13); PROTHROMBIN TIME 37.9 SECS (9.5-12.7)
[2016-10-22] MEDS ORDERED: IV SET PRIMARY 1 EA INFUS.SET MC ONE (20:30)
[2016-10-22] MEDS ORDERED: IV NS 0.9% 500 ML IV ONE (20:30)
[2016-10-22 20:31] LABS: ALBUMIN 2.6 g/dL (3.4-5.0); BILIRUBIN,DIRECT 0.7 mg/dL (0.0-0.2); BILIRUBIN,TOTAL 1.3 mg/dL (0.2-1.0); CALCIUM, SERUM 8.5 mg/dL (8.5-10.1); CREATININE 4.9 mg/dL (0.6-1.3); POTASSIUM 3.6 mmol/L (3.5-5.1); TOTAL PROTEIN, SERUM 7.5 g/dL (6.4-8.2)
--- NOTE | 2016-10-22 20:36 | NUR ---
ELTON AT BEDSIDE
--- NOTE | 2016-10-22 21:23 | NUR ---
URINE COLLECTED. SENT TO LAB, LAB AT BEDSIDE FOR LACTIC AND BLOOD CX DRAW
--- NOTE | 2016-10-22 21:24 | NUR ---
[facility]
[2016-10-22] MEDS ORDERED: PIPERACILLIN /TAZOBACTAM 3.375 G in IV D5W 50 ML IV ONE (21:30)
[2016-10-22] MEDS ORDERED: IV SET PRIMARY PUMP SET 1 EA INFUS.SET MC ONE ×2 (21:31→23:23)
[2016-10-22] MEDS ORDERED: IV D5W 50 ML IV ONE (21:31)
[2016-10-22] MEDS ORDERED: PIPERACILLIN /TAZOBACTAM 3.375 G VIAL IV ONE ×2 (21:31→21:32)
--- NOTE | 2016-10-22 21:32 | NUR ---
PT ASSIGNED TO MS BED 200
[2016-10-22 21:40] LABS: APPEARANCE,URINE Clear (CLEAR); BILIRUBIN,URINE Negative (NEGATIVE); BLOOD, URINE Moderate Ery/uL (NEGATIVE); COLOR,URINE Yellow (YELLOW); KETONES,URINE Negative (NEGATIVE); LEUKOCYTE ESTERASE ,URINE Negative (NEGATIVE); NITRITE, URINE Negative (NEGATIVE); PH,URINE 5.5 (5.0-8.0); PROTEIN,URINE 100 mg/dl (NEGATIVE); UGLUCOSE Negative (NEGATIVE)
--- NOTE | 2016-10-22 21:49 | NUR ---
REPORT GIVEN TO ANGELICA LANIER FOR MS BED 200+
--- NOTE | 2016-10-22 22:19 | NUR ---
PT TRANSFERED TO MS 200
--- NOTE | 2016-10-22 22:30 | NUR ---
MS RN NOTE: RECEIVED PATIENT FROM ER, NO ACUTE DISTRESS NOTED. BREATHING EVEN AND UNLABORED, NO SOB NOTED. IV TO LFA IN PLACE. NOTED WOUND TO LEFT HEEL, PICTURE TAKEN, WRAPPED WITH KERLIX. PATIENT WILL RIGHT BKA. ORIENTED PATIENT TO ROOM AND USE OF CALL LIGHT. BED LOCKED AND IN LOWEST POSITION, CALL LIGHT IN REACH. WILL CONTINUE TO MONITOR.
[2016-10-22] MEDS ORDERED: ACETAMINOPHEN 650 MG/SUPP.RECT RC PRN (23:00)
[2016-10-22] MEDS ORDERED: DEXTROSE 50%-WATER 50 ML DISP.SYRIN IV PRN (23:00)
[2016-10-22] MEDS ORDERED: IV D5/ 0.9% NACL 1,000 ML IV ONE (23:23)
[2016-10-22] MEDS: BLOOD SUGAR DIAGNOSTIC 1 EACH STRIP IN SCH (23:29)
[2016-10-22] MEDS: IV D5/ 0.9% NACL 1,000 ML IV PRN (23:29)
[2016-10-22 23:30] VITALS: BP 146/70
--- NOTE | 2016-10-23 00:30 | NUR ---
MS RN NOTE: PATIENT BLOOD SUGAR LEVEL 167MG/DL, NO INSULIN GIVEN SINCE PATIENT IS NPO AT THIS TIME. PATIENT DENIES S/S OF HYPERGLYCEMIA AT THIS TIME. WILL CONTINUE TO MONITOR.
[2016-10-23 00:38] LABS: ADD URINE CULTURE NO; BACTERIA,URINE None seen /HPF (None Seen); SQUAMOUS EPITHELIAL CELL,UR Moderate /HPF (None Seen); URINE AMORPHOUS URATE Moderate /HPF (None Seen); WBC,URINE 0-2 /HPF (0-3)
--- NOTE | 2016-10-23 01:00 | NUR ---
MS RN NOTE: PATIENT SEEN BY DR. RODRIGUEZ WITH NEW ORDERS. ORDERS NOTED AND CARRIED OUT FOR CT ABD WITHOUT CONTRAST AND NEPHRO CONSULT. WILL CONTINUE TO MONITOR.
[2016-10-23] MEDS ORDERED: IV D5W 50 ML IV ONE (04:52)
[2016-10-23] MEDS ORDERED: PIPERACILLIN /TAZOBACTAM 3.375 G VIAL IV ONE (04:52)
[2016-10-23] MEDS ORDERED: SECONDARY IV SET 1 EA INFUS.SET MC ONE ×2 (04:53→12:47)
[2016-10-23] MEDS ORDERED: PIPERACILLIN /TAZOBACTAM 3.375 G in IV D5W 50 ML IV SCH (05:00)
[2016-10-23] MEDS: BLOOD SUGAR DIAGNOSTIC 1 EACH STRIP IN SCH ×4 (05:43→23:58)
--- NOTE | 2016-10-23 06:00 | NUR ---
MS RN NOTE: PATIENT RESTING IN BED, NO ACUTE DISTRESS NOTED. BREATHING EVEN AND UNLABORED, NO SOB NOTED. IV TO LFA IN PLACE, INFUSING D5NS AT 100ML/HR. PATIENT BLOOD SUGAR LEVEL 201MG/DL, NO INSULIN GIVEN, PATIENT NPO. PATIENT DENIES S/S OF HYPERGLYCEMIA AT THIS TIME. BED LOCKED AND IN LOWEST POSITION, CALL LIGHT IN REACH. WILL ENDORSE TO DAY NURSE TO CONTINUE WITH PLAN OF CARE.
[2016-10-23 06:51] LABS: BASOPHILS # (AUTO) 0.1 /CMM (0.0-0.2); BASOPHILS % (AUTO) 0.4 % (0.0-2.0); EOSINOPHILS # (AUTO) 0.3 /CMM (0.0-0.7); EOSINOPHILS % (AUTO) 2.6 % (0.0-6.0); HEMATOCRIT 33 % (33-45); LYMPHOCYTES # (AUTO) 1.1 /CMM (0.8-4.8); LYMPHOCYTES % (AUTO) 8.2 % (20.0-44.0); MEAN CORPUSCULAR HEMOGLOBIN 31 PG (26.0-33.0); MEAN CORPUSCULAR HGB CONC 33 g/dl (31.0-36.0); MEAN CORPUSCULAR VOLUME 93 fL (82-100); MONOCYTES # (AUTO) 0.9 /CMM (0.1-1.30); MONOCYTES % (AUTO) 6.9 % (2.0-12.0); NEUTROPHILS # (AUTO) 10.6 /CMM (1.8-8.9); NEUTROPHILS % (AUTO) 81.9 % (43.0-81.0); PLATELET COUNT (AUTO) 204 /CMM (150-450); RDW COEFFICIENT OF VARIATION 18.4 (11.5-15.0); RED BLOOD CELL COUNT(AUTO) 3.57 MIL/uL (4.0-5.2)
[2016-10-23 07:10] LABS: ALBUMIN 2.3 g/dL (3.4-5.0); BILIRUBIN,TOTAL 1.1 mg/dL (0.2-1.0); CALCIUM, SERUM 7.6 mg/dL (8.5-10.1); CREATININE 4.8 mg/dL (0.6-1.3); POTASSIUM 2.9 mmol/L (3.5-5.1); TOTAL PROTEIN, SERUM 6.8 g/dL (6.4-8.2)
--- NOTE | 2016-10-23 07:45 | NUR ---
MS2/RN OPENING NOTES PT. IS IN BED SLEEPING WITH EYES CLOSED. OPENS EYES AND RESPONDS TO NAME. PT. IS NOT IN DISTRESS, BREATHING EVENLY, AND UNLABORED WITH OXYGEN 2L/MIN. NASAL CANNULA ON. PT. IS NPO. BED IS IN LOWEST POSITION, 2 BED RAILS UP, AND CALL LIGHT WITHIN REACH. IV ACCESS IN LEFT FOREARM PERFUSING D5WNS 100ML/HR. PT. IS AWAITING HIDAS, AND CT ABDOMEN SCAN WITHOUT CONTRAST. AT 0600 PT. BLOOD SUGAR 201. PT. ON BEDREST WITH A LEFT HEEL WOUND, AND HAS RIGHT BELOW KNEE AMPUTATION.
[2016-10-23 08:00] VITALS: BP_SYST 135; BP_SYST 137; BP_DIAS 71
--- NOTE | 2016-10-23 08:34 | NUR ---
WOUND CARE CONSULT: PT PRESENTS WITH LEFT HEEL ESCHAR, PRESENT ON ADMISSION. NO DRAINAGE OR SURROUNDING REDNESS NOTED. RECOMMEND DPM CONSULT. SOME STAINING AND SCARRING NOTED TO SACRAL AREA. PT IS INCONTINENT. RT BK STUMP NOTED. RECOMMENDATIONS MADE FOR SKIN PROTECTION. DISCUSSED WITH NURSING STAFF. PT ON COMFORT GEL MATTRESS. FLOAT LEFT HEEL. PT TO BE TURNED AND REPOSITIONED EVERY 2 HRS PT CONDITION PERMITS. IN AGREEMENT WITH PLAN OF CARE. Addendum: 10/23/16 at 0836 by VENECIA MARIE WNDNU Amended: Links added.
[2016-10-23] MEDS: PANTOPRAZOLE 40 MG VIAL IV SCH (08:59)
[2016-10-23] MEDS ORDERED: Z GUARD REMEDY 2 OZ OINT TP PRN (09:00)
[2016-10-23] MEDS: INSULIN REGULAR, HUMAN 100 UNIT/ML 3 ML VIAL SQ PRN ×3 (09:04→18:34)
[2016-10-23] MEDS: Z GUARD REMEDY 2 OZ OINT TP SCH (10:21)
[2016-10-23] MEDS: IV D5/ 0.9% NACL 1,000 ML IV PRN (10:21)
[2016-10-23] MEDS: ONDANSETRON HCL/PF 4 MG/2 ML VIAL IV PRN ×3 (10:58→18:35)
[2016-10-23] MEDS ORDERED: HYDROMORPHONE 1 MG/1 ML DISP.SYRIN IV PRN (13:00)
[2016-10-23] MEDS: PIPERACILLIN /TAZOBACTAM 2.25 G in IV D5W 50 ML IV SCH ×2 (13:08→21:06)
[2016-10-23] MEDS ORDERED: IV SET PRIMARY PUMP SET 1 EA INFUS.SET MC ONE (15:29)
--- NOTE | 2016-10-23 15:30 | NUR ---
FROM NUCLEAR MED HIDA SCAN PROCEDURE,PT WAS BROUGHT TO ROOM 321-1 AND GAVE REPORT TO ANGELICA CASSIDY WITH ALL THE IV MEDS AND PT BELONGINGS.ENDORSED TO COLLECT URINE FOR CREA,EOSINOPHIL AND RANDOM SODIUM LAB TEST.PT NAUSEOUS AND KEPT CLEAN AND DRY WITH HOB ELEVATED.
--- NOTE | 2016-10-23 15:30 | NUR ---
ms rn notes Re[facility] report [facility], patient is NPO and on 02 @ 2lpm via NC and tolerated well. Noted patient vomiting and for HIDA scan at 5pm per report. IV intact and patent with IVF infusing well. Potassium chloride due at 1pm and 2pm not given yet due to patient was in Nuclear medicine department for study. Vital signs checked and recorded. kept patient clean and comfortable in bed, call light with in patient reach, will continue to monitor accordingly.
[2016-10-23] MEDS: POTASSIUM CL. PREMIX PERIPHER. 50 ML IV SCH ×2 (15:33→16:46)
[2016-10-23 16:00] VITALS: BP 150/84
--- NOTE | 2016-10-23 19:15 | NUR ---
MS/RN OPENING NOTES PT ASLEEP, EASILY AROUSABLE TO NAME/TOUCH. ON 2LPM O2 VIA NC, DENIES SOB, NO S/S OF DISTRESS NOTED. BREATHING EVEN AND UNLABORED. DENIES PAIN. IV TO LEFT FA PATENT AND INTACT RUNNING IVF ORDERED. BED IN LOW/LOCKED POSITION WITH CALL LIGHT IN REACH. BED ALARM ON AND SIDE RAILS UPX2 FOR SAFETY. EXTREMITIES OFFLOADED. WILL CONTINUE TO MONITOR
--- NOTE | 2016-10-23 19:17 | NUR ---
ms rn closing notes All needs provided, attended, and anticipated. kept patient clean and comfortable in bed, call light with in patient reach, will continue to monitor accordingly. Endorsed to next shift RN to continue care.
[2016-10-23 19:55] VITALS: BP 156/78
[2016-10-23 20:00] VITALS: BP 156/78
[2016-10-23 22:30] VITALS: BP 118/59
[2016-10-23 22:41] VITALS: BP 138/70
[2016-10-24] MEDS ORDERED: DEXTROSE 50%-WATER 50 ML DISP.SYRIN IV PRN (00:30)
[2016-10-24] MEDS: INSULIN REGULAR, HUMAN 100 UNIT/ML 3 ML VIAL SQ PRN ×4 (00:34→17:06)
--- NOTE | 2016-10-24 00:36 | NUR ---
MS/RN NOTES BLOOD [id number], ADMINISTERED 6 UNIT OF INSULIN PER NPO SLIDING SCALE. IVF RUNNING D51/2 NS AT 100ML/HR. WILL MONITOR FOR S/S OF HYPOGLYCEMIA Addendum: 10/24/16 at 0206 by BRONWYN BATISTA RN *IVF=D5NS@100ML/HR
--- NOTE | 2016-10-24 04:00 | NUR ---
MS/RN NOTES PT HAS BEEN SLEEPING INTERMITTENTLY THROUGHOUT SHIFT. PT JUST TURNED/REPOSITIONED, EXTREMITIES REMAIN OFFLOADED. WILL CONTINUE TO MONITOR
[2016-10-24] MEDS: PIPERACILLIN /TAZOBACTAM 2.25 G in IV D5W 50 ML IV SCH ×3 (05:07→21:23)
[2016-10-24] MEDS: IV D5/ 0.9% NACL 1,000 ML IV PRN ×2 (05:07→16:37)
[2016-10-24] MEDS: BLOOD SUGAR DIAGNOSTIC 1 EACH STRIP IN SCH ×3 (06:18→17:04)
--- NOTE | 2016-10-24 06:31 | NUR ---
MS/RN NOTES BLOOD SUGAR 296. ADMINISTERED 6UNIT INSULIN PER SLIDING SCALE. IVF RUNNING D5NS@100ML/HR. PT REMAINS NPO
--- NOTE | 2016-10-24 07:19 | NUR ---
MS/RN CLOSING NOTES PT ASLEEP, EASILY AROUSABLE TO NAME. ON 2-3LPM O2 VIA NC. SATTING 97%, NO S/S OF DISTRESS NOTED. DENIES PAIN AT THIS TIME. NO FEELINGS OF N/V THROUGHOUT SHIFT. IV TO LFA PATENT AND INTACT RUNNING IVF ORDERED. TURNED/REPOSITION PT Q2H, EXTREMITIES OFFLOADED. MADE PT COMFORTABLE THROUGHOUT SHIFT, ALL NEEDS MET AND ATTENDED TO. BED IN LOW/LOCKED POSITION, CALL LIGHT IN REACH. DAUGHTER LAUREANO ([phone] CELL) CALLED TO CONFIRM IF PT WAS GOING TO HAVE SURGERY TODAY. INFORMED HER THAT THERE WAS NO ORDER FROM THE MD YET FOR SURGERY BUT ENDORSED TO THE DAY SHIFT RN TO GIVE HER A CALL IF SHE DOES END OF UP BEING SCHEDULED FOR SURGERY.
--- NOTE | 2016-10-24 07:30 | NUR ---
MS RN NOTES REPORT RECEIVED AT THE BEDSIDE. PATIENT IS SLEEPING. NO SOB OR DISTRESS NOTED AT THIS TIME. PATIENT DOES NOT APPEAR TO BE IN PAIN, NO FACIAL GRIMACE NOTED. BED IS IN THE LOWEST POSITION, CALL LIGHT WITHIN PATIENT REACH. WILL CONTINUE TO MONITOR.
[2016-10-24 08:00] VITALS: BP 153/69
[2016-10-24 08:07] LABS: BASOPHILS % (AUTO) 0.2 % (0.0-2.0); EOSINOPHILS # (AUTO) 0.2 /CMM (0.0-0.7); EOSINOPHILS % (AUTO) 1.4 % (0.0-6.0); HEMATOCRIT 34 % (33-45); HEMOGLOBIN 11.1 g/dL (11.5-14.8); LYMPHOCYTES # (AUTO) 0.9 /CMM (0.8-4.8); LYMPHOCYTES % (AUTO) 7.6 % (20.0-44.0); MEAN CORPUSCULAR HEMOGLOBIN 30 PG (26.0-33.0); MEAN CORPUSCULAR HGB CONC 33 g/dl (31.0-36.0); MEAN CORPUSCULAR VOLUME 93 fL (82-100); MONOCYTES # (AUTO) 0.7 /CMM (0.1-1.30); MONOCYTES % (AUTO) 6.1 % (2.0-12.0); NEUTROPHILS # (AUTO) 9.8 /CMM (1.8-8.9); NEUTROPHILS % (AUTO) 84.7 % (43.0-81.0); PLATELET COUNT (AUTO) 219 /CMM (150-450); RDW COEFFICIENT OF VARIATION 18.7 (11.5-15.0); RED BLOOD CELL COUNT(AUTO) 3.66 MIL/uL (4.0-5.2); WHITE BLOOD COUNT (AUTO) 11.6 K/uL (4.3-11.0)
[2016-10-24 08:23] LABS: CALCIUM, SERUM 7.9 mg/dL (8.5-10.1); CREATININE 3.8 mg/dL (0.6-1.3); MAGNESIUM 2.5 mg/dL (1.8-2.4); PHOSPHORUS 4.7 mg/dL (2.5-4.9)
[2016-10-24] MEDS: PANTOPRAZOLE 40 MG VIAL IV SCH (08:23)
[2016-10-24] MEDS: Z GUARD REMEDY 2 OZ OINT TP SCH (08:23)
[2016-10-24 08:28] LABS: POTASSIUM 2.8 mmol/L (3.5-5.1)
--- NOTE | 2016-10-24 08:50 | NUR ---
MS RN NOTES DR CAVANAUGH ON FLOOR. INFORMED MD OF POTASSIUM OF 2.8. MD GAVE VERBAL ORDER FOR 20MEQ IV. ORDERS PLACED.
[2016-10-24] MEDS ORDERED: POTASSIUM CHLORIDE 10 MEQ/50 ML PREMIXED IVPB FOR PERIPHERAL LINE IV ONE (09:00)
[2016-10-24] MEDS: NITROGLYCERIN 30 GM TUBE TP SCH ×2 (09:15→21:28)
[2016-10-24 09:26] LABS: ALBUMIN 2.4 g/dL (3.4-5.0); BILIRUBIN,DIRECT 0.5 mg/dL (0.0-0.2); BILIRUBIN,TOTAL 0.9 mg/dL (0.2-1.0); TOTAL PROTEIN, SERUM 6.9 g/dL (6.4-8.2)
[2016-10-24] MEDS: POTASSIUM CL. PREMIX PERIPHER. 50 ML IV SCH ×2 (10:40→11:48)
[2016-10-24 16:00] VITALS: BP 153/69
--- NOTE | 2016-10-24 18:53 | NUR ---
MS RN CLOSING NOTE NO SIGNIFICANT CHANGES IN PATIENT CONDITION THROUGHOUT THE SHIFT. NO SOB OR DISTRESS NOTED AT THIS TIME. PATIENT DENIES PAIN. BED IN A LOW POSITION, CALL LIGHT WITHIN PATIENT REACH, WILL ENDORSE FOR BETSEY.
--- NOTE | 2016-10-24 19:30 | NUR ---
MS/RN OPENING NOTES PT ASLEEP, EASILY AROUSABLE TO NAME. ON 2LPM O2 VIA NC. BREATHING EVEN AND UNLABORED. DENIES SOB, NO S/S OF DISTRESS NOTED. DENIES PAIN. IV LEFT FA PATENT AND INTACT RUNNING IVF ORDERED. EXTREMITIES OFFLOADED. BED IN LOW/LOCKED POSITION WITH CALL LIGHT IN REACH. BED RAILS UPX2. WILL CONTINUE TO MONITOR
[2016-10-24 20:00] VITALS: BP 151/67
--- NOTE | 2016-10-24 20:30 | NUR ---
MS/RN NOTES DR. RODRIGUEZ WAS AT BEDSIDE AND ASSESSED PT. WITH NEW ORDERS, ENTERED INTO THE COMPUTER. WILL CARRY OUT ACCORDINGLY.
[2016-10-25] MEDS: BLOOD SUGAR DIAGNOSTIC 1 EACH STRIP IN SCH ×4 (00:34→18:04)
[2016-10-25] MEDS: INSULIN REGULAR, HUMAN 100 UNIT/ML 3 ML VIAL SQ PRN ×4 (00:37→18:09)
--- NOTE | 2016-10-25 00:40 | NUR ---
MS/RN NOTES BLOOD [id number], ADMINISTERED 6 UNITS OF INSULIN PER SLIDING SCALE. WILL CONTINUE TO MONITOR FOR S/S OF HYPER/HYPO GLYCEMIA
[2016-10-25] MEDS ORDERED: DEXTROSE 50%-WATER 50 ML DISP.SYRIN IV PRN (01:00)
[2016-10-25] MEDS: IV D5/ 0.9% NACL 1,000 ML IV PRN ×2 (04:08→17:00)
[2016-10-25] MEDS: PIPERACILLIN /TAZOBACTAM 2.25 G in IV D5W 50 ML IV SCH ×3 (05:31→20:41)
--- NOTE | 2016-10-25 06:43 | NUR ---
MS/RN NOTES BLOOD [id number], ADMINISTERED 6 UNITS OF INSULIN PER SLIDING SCALE. WILL CONTINUE TO MONITOR FOR S/S OF HYPER/HYPO GLYCEMIA
--- NOTE | 2016-10-25 07:00 | NUR ---
MS/RN OPENING NOTES PT AWAKE. ON 2LPM O2 VIA NC. BREATHING EVEN AND UNLABORED. DENIES SOB, NO S/S OF DISTRESS NOTED. DENIES PAIN. IV LEFT FA PATENT AND INTACT RUNNING IVF ORDERED. EXTREMITIES REMAINED OFFLOADED THROUGHOUT SHIFT. TURNED/REPOSITIONED PT Q2H. MADE PT COMFORTABLE THROUGHOUT SHIFT. ALL NEEDS MET AND ATTENDED TO. BED IN LOW/LOCKED POSITION WITH CALL LIGHT IN REACH. BED RAILS UPX2. WILL ENDORSE TO AM SHIFT BETSEY.
[2016-10-25 07:59] LABS: BASOPHILS % (AUTO) 0.3 % (0.0-2.0); EOSINOPHILS # (AUTO) 0.3 /CMM (0.0-0.7); EOSINOPHILS % (AUTO) 2.8 % (0.0-6.0); HEMATOCRIT 36 % (33-45); HEMOGLOBIN 11.4 g/dL (11.5-14.8); LYMPHOCYTES % (AUTO) 10.2 % (20.0-44.0); MEAN CORPUSCULAR HEMOGLOBIN 30 PG (26.0-33.0); MEAN CORPUSCULAR HGB CONC 32 g/dl (31.0-36.0); MEAN CORPUSCULAR VOLUME 93 fL (82-100); MONOCYTES # (AUTO) 0.6 /CMM (0.1-1.30); MONOCYTES % (AUTO) 6.9 % (2.0-12.0); NEUTROPHILS # (AUTO) 7.5 /CMM (1.8-8.9); NEUTROPHILS % (AUTO) 79.8 % (43.0-81.0); PLATELET COUNT (AUTO) 239 /CMM (150-450); RDW COEFFICIENT OF VARIATION 18.7 (11.5-15.0); RED BLOOD CELL COUNT(AUTO) 3.81 MIL/uL (4.0-5.2); WHITE BLOOD COUNT (AUTO) 9.4 K/uL (4.3-11.0)
[2016-10-25 08:00] VITALS: BP 166/78
--- NOTE | 2016-10-25 08:10 | NUR ---
MS RN OPENING NOTES RECEIVED PT FROM NIGHTSHIFT NURSE IN STABLE CONDITION. PT AWAKE, ON 2LPM O2 VIA NC. BREATHING EVEN AND UNLABORED. NO SOB OR SIGNS OF DISTRESS AT THIS TIME. IV TO LEFT FOREARM RUNNING D5 NS @ 100ML/HR. PT IS INFUSION WELL. PATENT AND INTACT. NO REDNESS OR INFILTRATION NOTED. BED IN LOW LOCKED POSITION, SIDE RAILS UP X2, WITH CALL LIGHT IN REACH. WILL CONTINUE TO MONITOR
[2016-10-25 08:21] LABS: ALBUMIN 2.5 g/dL (3.4-5.0); BILIRUBIN,DIRECT 0.4 mg/dL (0.0-0.2); CALCIUM, SERUM 8.3 mg/dL (8.5-10.1); CREATININE 2.3 mg/dL (0.6-1.3); MAGNESIUM 2.1 mg/dL (1.8-2.4); PHOSPHORUS 2.6 mg/dL (2.5-4.9); POTASSIUM 2.9 mmol/L (3.5-5.1); TOTAL PROTEIN, SERUM 7.2 g/dL (6.4-8.2)
[2016-10-25] MEDS: PANTOPRAZOLE 40 MG VIAL IV SCH (08:52)
[2016-10-25] MEDS: Z GUARD REMEDY 2 OZ OINT TP SCH (08:53)
[2016-10-25] MEDS: NITROGLYCERIN 30 GM TUBE TP SCH ×2 (08:55→20:42)
[2016-10-25] MEDS: POTASSIUM CL. PREMIX PERIPHER. 50 ML IV SCH ×4 (09:40→14:16)
[2016-10-25 16:00] VITALS: BP 155/93
--- NOTE | 2016-10-25 18:40 | NUR ---
MS RN CLOSING NOTES PT. IN STABLE CONDITION. PT AWAKE, ON 2LPM O2 VIA NC. BREATHING EVEN AND UNLABORED. NO SOB OR SIGNS OF DISTRESS AT THIS TIME. IV TO LEFT FOREARM RUNNING D5 NS @ 100ML/HR. PT IS INFUSION WELL. PATENT AND INTACT. NO REDNESS OR INFILTRATION NOTED. BED IN LOW LOCKED POSITION, SIDE RAILS UP X2, WITH CALL LIGHT IN REACH. WILL ENDORSE TO NIGHTSHIFT NURSE FOR BETSEY.
--- NOTE | 2016-10-25 19:27 | NUR ---
MS/RN OPENING NOTES PATIENT IN BED BEING ASSISTED BY HEAD CAGER FOR HYGIENE CARE. ALERT X1. NO S/S OF SOB OR DISTRESS. ABLE TO FOLLOW SIMPLE COMMANDS. WILL CONTINUE TO MONITOR AND DO BETSEY. EXTENSIVE ASSISTANCE IN TURNING AND ADLS. WILL CHECK FOR ANY HYPO.HYPERGLYCEMIA. CALL LIGHTS WIHIN REACH.
[2016-10-25 20:00] VITALS: BP 155/74
[2016-10-25 20:34] VITALS: BP 155/74
--- NOTE | 2016-10-25 21:29 | NUR ---
MS/RN NOTES PER DR RODRIGUEZ, M TO F/U REGARDING GI CONSULT F/U WITH RECOMMENDATION OF MRCP ON PREVIOUS NOTES INFORMED CHARGE NURSE AND TO BE CONTACTED AM TODAY .ORDER FOR PTT/INR WITH LABS INFORMED .
[2016-10-26] MEDS: BLOOD SUGAR DIAGNOSTIC 1 EACH STRIP IN SCH ×4 (00:40→18:12)
[2016-10-26] MEDS: INSULIN REGULAR, HUMAN 100 UNIT/ML 3 ML VIAL SQ PRN ×4 (00:43→18:31)
[2016-10-26] MEDS: IV D5/ 0.9% NACL 1,000 ML IV PRN ×2 (03:34→18:35)
[2016-10-26] MEDS: PIPERACILLIN /TAZOBACTAM 2.25 G in IV D5W 50 ML IV SCH ×3 (04:57→18:33)
--- NOTE | 2016-10-26 05:37 | NUR ---
MS/RN NOTES PATIENT PROVIDED CARE AND IV ATB ADMINISTERED. PATIENT TOLERATE MED W/ NO S/S OF ADVERSE EFFECT. INFORMED CONSENT FOR PROCEDURE TODAY AND HAVE VERBALIZED TO BE SIGNED LATER THIS AM.
--- NOTE | 2016-10-26 07:30 | NUR ---
MS/RN CLOSING NOTES PATIENT ALERT, ORIENTED X2. NO S/S OF SOB OR DISTRESS, CALL LIGHTS WITHIN REACH. ATTEND TO NEEDS AT ALL TIMES. ENDORSE TO AM RN REGARDING BETSEY.INFORM REGARDING CONSENT TO BE SIGNED AND FAMILY TO F/U REGARDING PLAN FOR MRCP. TO F/U GI , DR STARK.
[2016-10-26 08:00] VITALS: BP 154/75
[2016-10-26 08:06] LABS: CALCIUM, SERUM 8.8 mg/dL (8.5-10.1); CREATININE 1.5 mg/dL (0.6-1.3); POTASSIUM 3.4 mmol/L (3.5-5.1)
[2016-10-26] MEDS: PANTOPRAZOLE 40 MG VIAL IV SCH (08:32)
[2016-10-26] MEDS: Z GUARD REMEDY 2 OZ OINT TP SCH (08:33)
[2016-10-26] MEDS: NITROGLYCERIN 30 GM TUBE TP SCH ×2 (08:33→20:46)
[2016-10-26 08:44] LABS: INR 1.18 (0.87-1.13); PROTHROMBIN TIME 12.8 SECS (9.5-12.7)
[2016-10-26] MEDS ORDERED: POTASSIUM CHLORIDE 20 MEQ TAB.PRT.SR PO ONE (09:00)
[2016-10-26] MEDS: POTASSIUM CHLORIDE 10 MEQ TABLET.SA PO SCH (09:00)
[2016-10-26 09:08] LABS: ALBUMIN 2.7 g/dL (3.4-5.0); BILIRUBIN,DIRECT 0.4 mg/dL (0.0-0.2); BILIRUBIN,TOTAL 1.2 mg/dL (0.2-1.0); TOTAL PROTEIN, SERUM 7.7 g/dL (6.4-8.2)
--- NOTE | 2016-10-26 11:40 | NUR ---
MS RN NOTES 0900 PO KDUR WAS NOT ADMINISTERED DUE TO NPO STATUS. DR. CAVANAUGH WAS MADE AWARE AND STATES THAT HE CREATE A NEW ORDER ONCE THE PT. RETURNS FROM HER MRCP.
--- NOTE | 2016-10-26 13:04 | NUR ---
MS RN NOTES PT REFUSED MRCP. DR. CAVANAUGH NOTIFIED. RESUME CLEAR LIQUID DIET PER MD ORDER.
[2016-10-26 14:31] LABS: HEPATITIS A AB, IgM Negative (Negative); HEPATITIS B CORE AB, IgM Negative (Negative); HEPATITIS C VIRUS AB 0.3 s/co ratio (0.0-0.9)
[2016-10-26 16:00] VITALS: BP 165/83
--- NOTE | 2016-10-26 18:15 | NUR ---
MS RN CLOSING NOTES PT. STABLE CONDITION. ON 2LPM O2 VIA NC. BREATHING EVEN AND UNLABORED. NO SOB OR SIGNS OF DISTRESS AT THIS TIME. IV TO LEFT FOREARM RUNNING D5 NS @ 100ML/HR. PT IS INFUSION WELL. PATENT AND INTACT. NO REDNESS OR INFILTRATION NOTED. BED IN LOW LOCKED POSITION, SIDE RAILS UP X2, WITH CALL LIGHT IN REACH. ALL ORDERS CARRIED OUT THROUGHOUT SHIFT. WILL ENDORSE TO NIGHTSHIFT NURSE FOR BETSEY
[2016-10-26] MEDS ORDERED: POTASSIUM CHLORIDE 20 MEQ TAB.PRT.SR PO STA (19:15)
--- NOTE | 2016-10-26 19:30 | NUR ---
MS/RN NOTES RECEIVED PT. LYING IN BED RESTING. PT. IS EASILY AROUSABLE TO NAME AND TOUCH. BREATHING EVEN AND UNLABORED ON 2LPM O2 VIA NC. NO SOB, RESPIRATORY DISTRESS OR COMPLAINTS OF PAIN NOTED AT THIS TIME. PT. WITH LEFT FOREARM 18 GAUGE PERIPHERAL IV PRESENT, PATENT AND INTACT ADMINISTERING TO PT. D5 NS @ 100ML/HR. NO S/S OF HYPO/HYPERGLYCEMIA NOTED AT THIS TIME. BED IN LOWEST POSITION, CALL LIGHT WITHIN REACH, WILL CONTINUE TO MONITOR.
[2016-10-26 20:00] VITALS: BP 123/71
[2016-10-27] MEDS: BLOOD SUGAR DIAGNOSTIC 1 EACH STRIP IN SCH ×3 (00:12→12:08)
[2016-10-27] MEDS: PIPERACILLIN /TAZOBACTAM 2.25 G in IV D5W 50 ML IV SCH ×3 (00:13→12:08)
[2016-10-27] MEDS ORDERED: SECONDARY IV SET 1 EA INFUS.SET MC ONE (00:15)
[2016-10-27] MEDS: INSULIN REGULAR, HUMAN 100 UNIT/ML 3 ML VIAL SQ PRN ×3 (00:15→12:12)
[2016-10-27] MEDS ORDERED: IV D5/ 0.9% NACL 1,000 ML IV ONE (05:40)
[2016-10-27] MEDS: IV D5/ 0.9% NACL 1,000 ML IV PRN (05:49)
--- NOTE | 2016-10-27 06:24 | NUR ---
MS/RN NOTES PT. LYING IN BED RESTING. BREATHING EVEN AND UNLABORED ON 2LPM O2 VIA NC. NO SOB, RESPIRATORY DISTRESS OR COMPLAINTS OF PAIN NOTED AT THIS TIME. PT. WITH LEFT FOREARM 18 GAUGE PERIPHERAL IV PRESENT, PATENT AND INTACT ADMINISTERING TO PT. D5 NS @ 100ML/HR. NO S/S OF HYPO/HYPERGLYCEMIA NOTED AT THIS TIME AND THROUGHOUT SHIFT. ALL PT. NEEDS MET. PT. OFFLOADED, TURNED AND REPOSITIONED Q2H AND NEEDED. BED IN LOWEST POSITION, CALL LIGHT WITHIN REACH, WILL ENDORSE TO DAYSHIFT NURSE FOR CONTINUITY OF CARE
--- NOTE | 2016-10-27 07:15 | NUR ---
MS RN OPENING NOTES RECEIVED PT FROM NIGHTSHIFT NURSE IN STABLE CONDITION. PT AWAKE, ON 2LPM O2 VIA NC. BREATHING EVEN AND UNLABORED. NO SOB OR SIGNS OF DISTRESS AT THIS TIME. IV TO LEFT FOREARM RUNNING D5 NS @ 100ML/HR. PT IS TOLERATING INFUSION WELL. IV PATENT AND INTACT. NO REDNESS OR INFILTRATION NOTED. BED IN LOW LOCKED POSITION, SIDE RAILS UP X2, WITH CALL LIGHT IN REACH. WILL CONTINUE TO MONITOR
[2016-10-27 08:00] VITALS: BP 166/87
[2016-10-27] MEDS: POTASSIUM CHLORIDE 10 MEQ TABLET.SA PO SCH (09:00)
[2016-10-27] MEDS: PANTOPRAZOLE 40 MG VIAL IV SCH (09:02)
[2016-10-27 09:03] VITALS: BP 166/87
[2016-10-27] MEDS: NITROGLYCERIN 30 GM TUBE TP SCH (09:03)
[2016-10-27] MEDS: Z GUARD REMEDY 2 OZ OINT TP SCH (09:05)
[2016-10-27] MEDS ORDERED: LEVO750T21 PO (10:14)
[2016-10-27] MEDS ORDERED: METR500T PO (10:14)
--- NOTE | 2016-10-27 10:35 | NUR ---
MS RN NOTES AM KDUR WAS HELD. PT'S K+ WAS 3.4 YESTERDAY AND WAS REPLACED. THERE WERE NO SCHEDULED AM LABS FOR THIS MORNING. DR. GEORGE WAS NOTIFIED AND AGREED TO HOLD THE MEDICATION
--- NOTE | 2016-10-27 15:20 | NUR ---
MS RN NOTES PT. LEFT THE UNIT IN STABLE CONDITION. SHE WAS SAFELY TRANSFERRED FROM BED TO STRETCHER. TAKEN VIA AMBULANCE
== END 2016-10-27 15:15 | DRG 871 ==
LOC: ER 19:36 → MEDSG2 21:56 → MED 10-23 15:28
PROVIDERS: ADMIT Legal Medicine; ATTEND Legal Medicine
DX: A41.9 Sepsis, unspecified organism (principal); N17.0 Acute kidney failure with tubular necrosis; I13.0 Hypertensive heart and chronic kidney disease with heart failure and stage 1 through stage 4 chronic kidney disease, or unspecified chronic kidney disease; I50.32 Chronic diastolic (congestive) heart failure; K80.01 Calculus of gallbladder with acute cholecystitis with obstruction; K82.1 Hydrops of gallbladder; K21.9 Gastro-esophageal reflux disease without esophagitis; E11.22 Type 2 diabetes mellitus with diabetic chronic kidney disease; N18.9 Chronic kidney disease, unspecified; I25.10 Atherosclerotic heart disease of native coronary artery without angina pectoris; Z89.511 Acquired absence of right leg below knee; Z91.19 Patient's noncompliance with other medical treatment and regimen; D64.9 Anemia, unspecified; E78.5 Hyperlipidemia, unspecified; E87.6 Hypokalemia; J45.909 Unspecified asthma, uncomplicated; K82.8 Other specified diseases of gallbladder; M81.0 Age-related osteoporosis without current pathological fracture; M19.90 Unspecified osteoarthritis, unspecified site
CPT/HCPCS: 36415; 71010-TC; 76700-TC; 78226; 80048-TC; 80053-TC; 80074; 80076-TC; 81000-TC; 82962-TC; 83605-TC; 83690-TC; 83735-TC; 84100-TC; 85025-TC; 85610-TC; 85730-TC; 87040-TC; 87081-TC; 94799-TC; A4606; A6402; A9537; C9113; J1170; J1815; J2405; J2543; J3480; J7040; J7042; J7060; Z7610

== ENCOUNTER 2016-11-26 21:51 | Emergency (ER) | payer MEDICARE, MEDICAID ==
[~2016-11-26] VITALS: Ht 154.9 cm; Wt 72.6 kg
[~2016-11-26 21:51] MED LIST changes: -ACET-868 PO; -ALBU2.5V38 NEB; -ASPI-495 PO; -ATOR20TA PO; -CLON0.1T PO; -ENOX40DI SQ; -FURO-144 PO; -LACT1CAP61 PO; +LEVO750T21 PO; -METO50TA7 PO; +METR500T PO; -ONDA4TAB11 PO; -OXYB5TAB PO; -PANT40TA2 PO; -PREG50CA PO
--- NOTE | 2016-11-26 22:05 | NUR ---
PT BIB PA FROM SNF WITH A C/O BLE PAIN. PT HAS RT BKA. PT IS AA&O X4. DR. DICKENS IS AT THE BEDSIDE.
--- NOTE | 2016-11-26 22:20 | NUR ---
PT REC'D A CUP OF WATER AND TOLERATED PO WELL.
--- NOTE | 2016-11-26 22:37 | NUR ---
PT APPEARS TO BE RESTING COMFORTABLY WITH NO S/S OF PAIN OR DISTRESS.
[2016-11-26 23:17] VITALS: BP 128/74
== END 2016-11-26 23:18 | disposition home or self-care (01) ==
LOC: ER 21:54
DX: Z00.8 Encounter for other general examination (principal); E11.9 Type 2 diabetes mellitus without complications; I11.0 Hypertensive heart disease with heart failure; I50.9 Heart failure, unspecified; I73.9 Peripheral vascular disease, unspecified; E78.5 Hyperlipidemia, unspecified; K21.9 Gastro-esophageal reflux disease without esophagitis; Z89.511 Acquired absence of right leg below knee; Z90.89 Acquired absence of other organs
CPT/HCPCS: 82962-TC; A4606; Z7610